=== PATIENT | female | born 1990 | race Two or more races ===

== ENCOUNTER 2017-10-07 04:07 | Emergency (ER) | payer OTHER ==
[2017-10-07 06:03] LABS: ABSOLUTE BASOPHILS # (AUTO) 0.1 10^3/uL (0.0-0.2); ABSOLUTE EOSINOPHILS # (AUTO) 0.3 10^3/uL (0.0-0.6); ABSOLUTE MONOCYTES (AUTO) 0.8 10^3/uL (0.1-1.4); ABSOLUTE NEUT (AUTO) 5.8 10^3/uL (1.7-8.2); BASOPHILS % (AUTO) 0.7 % (0-2); HEMATOCRIT 36.9 % (36.0-47.0); HEMOGLOBIN 12.3 g/dL (12.0-15.5); LYMPHOCYTES % (AUTO) 22.6 % (13-45); MEAN CORPUSCULAR HEMOGLOBIN 29.2 pg (27.0-33.4); MEAN CORPUSCULAR HGB CONC 33.3 g/dL (32.0-36.0); MEAN CORPUSCULAR VOLUME 88 fl (80-97); MONOCYTES % (AUTO) 9.2 % (3-13); RED BLOOD COUNT 4.21 10^6/uL (3.72-5.28); SEGMENTED NEUTROPHILS % (AUTO) 64.5 % (42-78); WHITE BLOOD COUNT 8.9 10^3/uL (4.0-10.5)
[2017-10-07 06:11] LABS: APPEARANCE,URINE CLEAR; BILIRUBIN,URINE NEGATIVE (NEGATIVE); GLUCOSE, URINE NEGATIVE (NEGATIVE); KETONES,URINE NEGATIVE (NEGATIVE); LEUKOCYTE ESTERASE,URINE NEGATIVE (NEGATIVE); NITRITE,URINE NEGATIVE (NEGATIVE); PROTEIN,URINE NEGATIVE (NEGATIVE); URINE SPECIFIC GRAVITY 1.016; UROBILINOGEN,URINE NEGATIVE mg/dL (<2.0)
[2017-10-07 06:15] LABS: ANION GAP 10 (5-19); BLOOD UREA NITROGEN 11 mg/dL (7-20); CALCIUM 9.1 mg/dL (8.4-10.2); CARBON DIOXIDE 29 mmol/L (22-30); CHLORIDE 104 mmol/L (98-107); CREATININE RESULT 0.71 mg/dL (0.52-1.25); GLUCOSE 83 mg/dL (75-110); POTASSIUM 4.3 mmol/L (3.6-5.0); SODIUM 142.6 mmol/L (137-145)
[2017-10-07 06:34] LABS: ALANINE AMINOTRANSFERASE 33 U/L (9-52); ALBUMIN 4.4 g/dL (3.5-5.0); ALKALINE PHOSPHATASE 64 U/L (38-126); ASPARTATE AMINO TRANSFERASE 23 U/L (14-36); BILIRUBIN,DIRECT 0.1 mg/dL (0.0-0.4); BILIRUBIN,TOTAL 0.2 mg/dL (0.2-1.3); TOTAL PROTEIN 6.8 g/dL (6.3-8.2)
--- NOTE | 2017-10-07 06:48 | ER Document Report ---
ED General - General Chief Complaint: Abdominal Pain Stated Complaint: ABDOMINAL PAIN Time Seen by Provider: 10/07/17 06:08 TRAVEL OUTSIDE OF THE [place] IN LAST 30 DAYS: No - HPI Patient complains to provider of: Multiple complaints abdominal pain Notes: Patient coming in today for multiple complaints which include extreme weight loss over 3 months hair loss over 3 months week lethargic states not having extreme abdominal pain left upper quadrant. Patient states is ongoing for the last few days patient states worse tonight no nausea no vomiting no diarrhea. Patient states no exacerbation with eating food. Patient states pain normally starts in the left upper quadrant and radiates to rest of her body. Patient states recently was seen in [facility] however noted laboratory testing or imaging was performed. Patient denies a history of alcohol abuse denies any NSAID use. Patient resting comfortably upon my evaluation. 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 Patient denies any diarrhea denies seeing any parasites in her stool. - Related Data Allergies/Adverse Reactions: No Known Allergies Allergy (Unverified 04/18/14 20:17) Past Medical History - Social History Smoking Status: Unknown if Ever Smoked Family History: Reviewed & Not Pertinent Patient has suicidal ideation: No Patient has homicidal ideation: No Renal/ Medical History: Denies: Hx Peritoneal Dialysis - Immunizations Immunizations up to date: Yes Hx Diphtheria, Pertussis, Tetanus Vaccination: Yes Review of Systems - Review of Systems Constitutional: Other - Weight loss hair loss feeling weak and tired EENT: No symptoms reported Cardiovascular: No symptoms reported Respiratory: No symptoms reported Gastrointestinal: Abdominal pain Genitourinary: No symptoms reported Female Genitourinary: No symptoms reported Musculoskeletal: No symptoms reported Skin: No symptoms reported Hematologic/Lymphatic: No symptoms reported Neurological/Psychological: No symptoms reported Physical Exam - Vital signs Vitals: Temp Pulse Resp BP Pulse Ox 99.3 F 116 H 20 143/93 H 99 10/07/17 04:13 10/07/17 04:13 10/07/17 04:13 10/07/17 04:13 10/07/17 04:13 Interpretation: Normal - General General appearance: Appears well, Alert - HEENT Head: Normocephalic, Atraumatic Eyes: Normal Pupils: PERRL - Respiratory Respiratory status: No respiratory distress Chest status: Nontender Breath sounds: Normal Chest palpation: Normal - Cardiovascular Rhythm: Regular Heart sounds: Normal auscultation Murmur: No - Abdominal Inspection: Normal Distension: No distension Bowel sounds: Normal Tenderness: Nontender Organomegaly: No organomegaly - Back Back: Normal, Nontender - Extremities General upper extremity: Normal inspection, Nontender, Normal color, Normal ROM , Normal temperature General lower extremity: Normal inspection, Nontender, Normal color, Normal ROM , Normal temperature, Normal weight bearing. No: Lydia's sign - Neurological Neuro grossly intact: Yes Cognition: Normal Orientation: AAOx4 [place] Coma Scale Eye Opening: Spontaneous [place] Coma Scale Verbal: Oriented Daniella Coma Scale Motor: Obeys Commands [place] Coma Scale Total: 15 Speech: Normal Motor strength normal: LUE, RUE, LLE, RLE Sensory: Normal - Psychological Associated symptoms: Normal affect, Normal mood - Skin Skin Temperature: Warm Skin Moisture: Dry Skin Color: Normal Course - Re-evaluation Re-evalutation: 10/07/17 07:25 Patient examination is otherwise benign. Did review the patient's weight last time she is here in the emergency room in December 2015 with a weight of 64 kg. Patient does weigh 58 kg today. Laboratory studies not show any eosinophilia consistent with a parasitic infection. Also does not show any other derangement or concerning pathology. Because of the patient's left upper quadrant pain will start patient on omeprazole and Bentyl. I encouraged patient to follow-up with primary care physicians at [facility]. Patient states understanding will be discharged home. - Vital Signs Vital signs: Temp Pulse Resp BP Pulse Ox 98 F 71 16 105/58 L 98 10/07/17 08:00 10/07/17 08:00 10/07/17 08:00 10/07/17 08:00 10/07/17 08:00 - Laboratory Result Diagrams: 10/07/17 05:50 10/07/17 05:50 Laboratory results interpreted by me: 10/07/17 05:50 Urine Ascorbic Acid 20 H Discharge - Discharge Clinical Impression: Weight loss, Weakness Abdominal pain Qualifiers: Abdominal location: unspecified location Qualified Code(s): R10.9 - Unspecified abdominal pain Condition: Good Disposition: HOME, SELF-CARE Instructions: Abdominal Pain ([facility]), Gastritis ([facility]) Additional Instructions: Your laboratory results today do not show any significant pathology. We will send you home with materials to perform stool testing for parasites. Please take medications as prescribed. I recommend following up with your primary care physician for further outpatient testing. Return to the ER for any concerning issues. Prescriptions: Dicyclomine HCl [Bentyl 20 mg Tablet] 20 mg PO QID #40 tablet Omeprazole 20 mg PO DAILY #30 capsule.dr Forms: Follow-Up Outpatient Testing
[2017-10-07 07:01] LABS: URINE BARBITURATES SCREEN NEGATIVE; URINE METHADONE SCREEN NEGATIVE; URINE OPIATES LOW NEGATIVE; URINE PHENCYCLIDINE SCREEN NEGATIVE
[2017-10-07] MEDS ORDERED: DICYCLOMINE HCL 20 MG TABLET PO ONE (07:28)
[2017-10-07] MEDS ORDERED: LANSOPRAZOLE 30 MG TAB.RAP.DR PO ONE (07:28)
[2017-10-07 08:11] VITALS: BP 105/58
== END 2017-10-07 08:00 | disposition home or self-care (01) ==
LOC: ER 04:07
DX: R63.4 Abnormal weight loss (principal); R53.1 Weakness; R10.9 Unspecified abdominal pain; L65.9 Nonscarring hair loss, unspecified
CPT/HCPCS: 99284; 36415; 84439; 84702; 83690; 84443; 85025; 80076; 80048; 81001; 80307; J3490

== ENCOUNTER 2018-03-21 12:08 | Emergency (ER) | payer OTHER ==
[2018-03-21] MEDS ORDERED: DIPH/PERTUSS(ACELL)/TETANUS VAC/PF 0.5 ML SYR (>=10YO) IM ONE (13:15)
--- NOTE | 2018-03-21 14:02 | RADIOLOGY REPORT (SQ) ---
EXAM DESCRIPTION: WRIST LEFT 3 VIEWS COMPLETED DATE/TIME: 03/21/2018 1:48 pm REASON FOR STUDY: wrist pain and swelling COMPARISON: None. NUMBER OF VIEWS: Three views. TECHNIQUE: AP, lateral, and oblique radiographic images acquired of the left wrist. LIMITATIONS: None. FINDINGS: MINERALIZATION: Normal. BONES: No acute fracture or dislocation. No worrisome bone lesions. Normal alignment. SOFT TISSUES: Air is identified in the soft tissues especially anterior to the distal ulna and radius with associated soft tissue swelling. The possibility of an infectious process should be considered . Couple small radiopaque densities are identified 1 at the level of carpal bones medially in 1 post erior to the distal ulna and radius which I cannot exclude is radiopaque foreign bodies. OTHER: No other significant finding. IMPRESSION: Air is identified in the soft tissues as noted above with associated soft tissue swellin g. The possibility of an infectious process should be considered. Possible radiopaque foreign kelly s as noted above. Other findings as noted above TECHNICAL DOCUMENTATION: JOB ID: [id number] [employer]- All Rights Reserved Reading location - IP/workstation name: [email or web address]
[2018-03-21 14:22] VITALS: BP 109/68
--- NOTE | 2018-03-21 15:29 | ER Document Report ---
ED Animal Bite - General Chief Complaint: Dog Bite Stated Complaint: DOG BITE Time Seen by Provider: 03/21/18 13:10 Notes: Patient is a healthy 27-year-old female presenting to the emergency department complaining of a dog bite to her left forearm. Patient was breaking up a fight between her dogs when the dog bit her TRAVEL OUTSIDE OF THE [place] IN LAST 30 DAYS: No - HPI Location of injury: LUE Severity of injury: Bitten Onset: Just prior to arrival Quality of pain: Achy Pain Level: 4 Context of attack: Animals fighting Type of animal: Dog Appearance of animal: Appeared well - Related Data Allergies/Adverse Reactions: No Known Allergies Allergy (Verified 03/21/18 12:22) Past Medical History - General Information source: Patient - Social History Smoking Status: Current Every Day Smoker Frequency of alcohol use: Rare Drug Abuse: None Lives with: Family Family History: Reviewed & Not Pertinent Patient has suicidal ideation: No Patient has homicidal ideation: No - Medical History Medical History: Negative Renal/ Medical History: Denies: Hx Peritoneal Dialysis - Immunizations Immunizations up to date: Yes Hx Diphtheria, Pertussis, Tetanus Vaccination: Yes Review of Systems - Review of Systems Constitutional: No symptoms reported EENT: No symptoms reported Cardiovascular: No symptoms reported Respiratory: No symptoms reported Gastrointestinal: No symptoms reported Genitourinary: No symptoms reported Female Genitourinary: No symptoms reported Musculoskeletal: See HPI Skin: No symptoms reported Hematologic/Lymphatic: No symptoms reported Neurological/Psychological: No symptoms reported Physical Exam - Vital signs Vitals: Temp Pulse Resp BP Pulse Ox 99.1 F 76 16 97/60 L 100 03/21/18 12:29 03/21/18 12:29 03/21/18 12:29 03/21/18 12:29 03/21/18 12:29 Interpretation: Normal - General General appearance: Appears well, Alert - HEENT Head: Normocephalic, Atraumatic Eyes: Normal Pupils: PERRL - Respiratory Respiratory status: No respiratory distress Chest status: Nontender Breath sounds: Normal Chest palpation: Normal - Cardiovascular Rhythm: Regular Heart sounds: Normal auscultation Murmur: No - Abdominal Inspection: Normal Distension: No distension Bowel sounds: Normal Tenderness: Nontender Organomegaly: No organomegaly - Back Back: Normal, Nontender - Extremities General lower extremity: Normal inspection, Nontender, Normal color, Normal ROM , Normal temperature, Normal weight bearing. No: Lydia's sign Forearm: Tender - Positive soft tissue swelling to left dorsal hand and left dorsal forearm with 2 puncture wounds to dorsal mid forearm. Abrasion to mid left palm. no tendon involvement. - Neurological Neuro grossly intact: Yes Cognition: Normal Orientation: AAOx4 [place] Coma Scale Eye Opening: Spontaneous [place] Coma Scale Verbal: Oriented [place] Coma Scale Motor: Obeys Commands [place] Coma Scale Total: 15 Speech: Normal Motor strength normal: LUE, RUE, LLE, RLE Sensory: Normal - Psychological Associated symptoms: Normal affect, Normal mood - Skin Skin Temperature: Warm Skin Moisture: Dry Skin Color: Normal Course - Re-evaluation Re-evalutation: 03/21/18 15:26 X-rays negative for fracture but showing air through multiple levels of soft tissue. These results were reviewed with Dr. Deutsch who recommended an orthopedic consult. I discussed patient with orthopedist non categorical preschool teacher, Dr. Sawant who recommends IV antibiotic Unasyn 1 dose now and oral antibiotic coverage with Augmentin and follow-up in his office tomorrow for further evaluation. This plan was discussed with the patient who is in agreement. Wounds were cleansed with Shur-Clens and antibiotic ointment and dressings were applied. There are no symptoms of circulatory compromise or compartment syndrome. Patient is stable for discharge - Vital Signs Vital signs: Temp Pulse Resp BP Pulse Ox 98.0 F 71 16 109/68 100 03/21/18 14:21 03/21/18 14:21 03/21/18 14:21 03/21/18 14:21 03/21/18 14:21 Discharge - Discharge Clinical Impression: Dog bite Qualifiers: Encounter type: initial encounter Qualified Code(s): W54.0XXA - Bitten by dog, initial encounter Condition: Stable Disposition: HOME, SELF-CARE Instructions: Animal Bites ([facility]), Antibiotic Therapy ([facility]), Ibuprofen (General ) ([facility]), IV Antibiotics ([facility]), Soap Cleansing ([facility]), Tetanus Immunization Given ([facility]) Additional Instructions: Clean wounds with antibacterial soap and water Cover with antibiotic ointment and dressing after cleaning Please follow-up with orthopedist tomorrow for further evaluation and treatment Prescriptions: Amox Tr/Potassium Clavulanate [Augmentin 875-125 Tablet] 1 tab PO BID 10 Days # 20 tablet Hydrocodone/Acetaminophen [[place] 5-325 mg Tablet] 1 tab PO Q4H #15 tablet Ibuprofen [Motrin 800 Mg Tablet] 800 mg PO Q6H #20 tablet Forms: Return to Work
[2018-03-21] MEDS ORDERED: AMPICILLIN SOD/SULBACTAM 3 GM VIAL IV ONE (15:43)
== END 2018-03-21 18:01 | disposition home or self-care (01) ==
LOC: ER 12:08
DX: S51.852A Open bite of left forearm, initial encounter (principal); W54.0XXA Bitten by dog, initial encounter; Y92.009 Unspecified place in unspecified non-institutional (private) residence as the place of occurrence of the external cause; F17.200 Nicotine dependence, unspecified, uncomplicated; Z23 Encounter for immunization
CPT/HCPCS: 99283; 90471; 96374; 73110; 90715; J0295

== ENCOUNTER 2018-04-19 17:07 | Emergency (ER) | payer OTHER ==
[2018-04-19] MEDS ORDERED: ONDANSETRON 4 MG TAB.RAPDIS PO ONE (18:07)
--- NOTE | 2018-04-19 18:08 | ER Document Report ---
ED Medical Screen (RME) - General Chief Complaint: General Weakness Stated Complaint: WEAKNESS Time Seen by Provider: 04/19/18 18:01 Notes: RAPID MEDICAL EVALUATION DISCLOSURE I have seen this patient as part of a Rapid Medical Evaluation and, if applicable, placed any initially appropriate orders. The patient will be seen and fully evaluated, including a full history and physical exam, by a provider ( in Main ED or Fast Track) when a room becomes available. 27-year-old female here with complaints of fatigue, generalized weakness, weight loss, nausea, hair loss ongoing for the past 6 months. She states it has been worsening over the past few weeks. She had seen her PCP several weeks ago and "they took a lot of blood but I have not heard anything back yet". She has not tried anything for the symptoms. EXAM CTAB RRR Alert oriented and conversational TRAVEL OUTSIDE OF THE [place] IN LAST 30 DAYS: No - Related Data Allergies/Adverse Reactions: No Known Allergies Allergy (Verified 04/19/18 17:08) Past Medical History Renal/ Medical History: Denies: Hx Peritoneal Dialysis - Immunizations Immunizations up to date: Yes Hx Diphtheria, Pertussis, Tetanus Vaccination: Yes Physical Exam - Vital signs Vitals: Temp Pulse Resp BP Pulse Ox 98.4 F 75 20 120/73 99 04/19/18 17:20 04/19/18 17:20 04/19/18 17:20 04/19/18 17:20 04/19/18 17:20 Course - Vital Signs Vital signs: Temp Pulse Resp BP Pulse Ox 98.4 F 75 20 120/73 99 04/19/18 17:20 04/19/18 17:20 04/19/18 17:20 04/19/18 17:20 04/19/18 17:20
[2018-04-19 18:41] LABS: ABSOLUTE BASOPHILS # (AUTO) 0.1 10^3/uL (0.0-0.2); ABSOLUTE EOSINOPHILS # (AUTO) 0.2 10^3/uL (0.0-0.6); ABSOLUTE LYMPHOCYTES (AUTO) 2.6 10^3/uL (0.5-4.7); ABSOLUTE MONOCYTES (AUTO) 0.6 10^3/uL (0.1-1.4); BASOPHILS % (AUTO) 0.8 % (0-2); EOSINOPHILS % (AUTO) 2.6 % (0-6); HEMATOCRIT 40.4 % (36.0-47.0); HEMOGLOBIN 13.4 g/dL (12.0-15.5); LYMPHOCYTES % (AUTO) 35.2 % (13-45); MEAN CORPUSCULAR HEMOGLOBIN 29.6 pg (27.0-33.4); MEAN CORPUSCULAR VOLUME 90 fl (80-97); MONOCYTES % (AUTO) 7.6 % (3-13); PLATELET COUNT 273 10^3/uL (150-450); RED BLOOD COUNT 4.51 10^6/uL (3.72-5.28); RED CELL DISTRIBUTION WIDTH 13.2 % (11.5-14.0); SEGMENTED NEUTROPHILS % (AUTO) 53.8 % (42-78); TOTAL CELLS COUNTED % (AUTO) 100 %; WHITE BLOOD COUNT 7.4 10^3/uL (4.0-10.5)
[2018-04-19 18:46] LABS: AMORPHOUS SEDIMENT,URINE 1+ /HPF; APPEARANCE,URINE CLOUDY; BILIRUBIN,URINE NEGATIVE (NEGATIVE); COLOR,URINE YELLOW; GLUCOSE, URINE NEGATIVE (NEGATIVE); KETONES,URINE NEGATIVE (NEGATIVE); LEUKOCYTE ESTERASE,URINE NEGATIVE (NEGATIVE); NITRITE,URINE NEGATIVE (NEGATIVE); PROTEIN,URINE NEGATIVE (NEGATIVE); URINE SPECIFIC GRAVITY 1.017
[2018-04-19 19:07] LABS: ALANINE AMINOTRANSFERASE 28 U/L (9-52); ALBUMIN 4.5 g/dL (3.5-5.0); ALKALINE PHOSPHATASE 47 U/L (38-126); ANION GAP 12 (5-19); ASPARTATE AMINO TRANSFERASE 20 U/L (14-36); BILIRUBIN,DIRECT 0.3 mg/dL (0.0-0.4); BILIRUBIN,TOTAL 0.3 mg/dL (0.2-1.3); BLOOD UREA NITROGEN 11 mg/dL (7-20); CALCIUM 9.1 mg/dL (8.4-10.2); CARBON DIOXIDE 31 mmol/L (22-30); CHLORIDE 103 mmol/L (98-107); GLUCOSE 74 mg/dL (75-110); PHOSPHORUS 4.5 mg/dL (2.5-4.5); POTASSIUM 4.3 mmol/L (3.6-5.0); SODIUM 145.6 mmol/L (137-145); TOTAL PROTEIN 7.3 g/dL (6.3-8.2)
--- NOTE | 2018-04-19 19:34 | ER Document Report ---
HPI - HPI Patient complains to provider of: Fatigue, nausea Onset: Other - Several weeks Onset/Duration: Persistent Quality of pain: No pain Pain Level: Denies Context: Patient complains of generalized fatigue, nausea and lack of energy for the past several weeks. Patient reports a 8 pound weight loss in 5 days. Patient denies any fever vomiting or diarrhea. Patient denies any chest pain, cough or cold symptoms. Associated Symptoms: Nausea, Other - Fatigue. denies: Chest pain, Nonproductive cough, Productive cough, Fever, Headache, Vomiting Exacerbated by: Denies Relieved by: Denies Similar symptoms previously: No Recently seen / treated by doctor: Yes - ROS ROS below otherwise negative: Yes Systems Reviewed and Negative: Yes All other systems reviewed and negative - CONSTITUTIONAL Constitutional: DENIES: Fever, Chills - EENT EENT: DENIES: Sore Throat - NEURO Neurology: DENIES: Headache - CARDIOVASCULAR Cardiovascular: DENIES: Chest pain - RESPIRATORY Respiratory: DENIES: Trouble Breathing, Coughing - GASTROINTESTINAL Gastrointestinal: REPORTS: Nausea. DENIES: Abdominal Pain, Patient vomiting - REPRODUCTIVE Reproductive: DENIES: : - MUSCULOSKELETAL Musculoskeletal: DENIES: Back Pain, Neck Pain - DERM Skin Color: Normal, [place] Skin Problems: None Past Medical History - General Information source: Patient - Social History Smoking Status: Current Every Day Smoker Smoking Education Provided: Yes Frequency of alcohol use: Occasional Drug Abuse: Marijuana Occupation: financial planning assistant Lives with: Family Family History: Reviewed & Not Pertinent Patient has suicidal ideation: No Patient has homicidal ideation: No - Medical History Medical History: Negative Renal/ Medical History: Denies: Hx Peritoneal Dialysis Surgical Hx: Negative - Immunizations Immunizations up to date: Yes Hx Diphtheria, Pertussis, Tetanus Vaccination: Yes Vertical Provider Document - CONSTITUTIONAL Agree With Documented VS: Yes Exam Limitations: No Limitations General Appearance: WD/WN, No Apparent Distress - INFECTION CONTROL TRAVEL OUTSIDE OF THE [place] IN LAST 30 DAYS: No - HEENT HEENT: Atraumatic, Normal ENT Exam, Normocephalic, PERRLA - NECK Neck: Normal Inspection, Supple. negative: Lymphadenopathy-Left, Lymphadenopathy-Right - RESPIRATORY Respiratory: Breath Sounds Normal, No Respiratory Distress - CARDIOVASCULAR Cardiovascular: Regular Rate, Regular Rhythm, No Murmur - GI/ABDOMEN Gastrointestinal: Abdomen Soft, Abdomen Non-Tender, No Organomegaly - BACK Back: Normal Inspection. negative: CVA Tenderness-Right, CVA Tenderness-Left - MUSCULOSKELETAL/EXTREMETIES Musculoskeletal/Extremeties: MAEW - NEURO Level of Consciousness: Awake, Alert, Appropriate Motor/Sensory: No Motor Deficit - DERM Integumentary: Warm, Dry, No Rash Course - Re-evaluation Re-evalutation: 04/19/18 20:02 Patient tolerating fluids without emesis. Discussed results of diagnostic tests. Patient encouraged to follow-up with a primary doctor for further evaluation of her thyroid functioning. Patient also encouraged to follow-up with a auto dealer for further evaluation given her history of abnormal Pap test. Patient encouraged to eat regular meals with snacks. Patient also advised that she may need to touch base with a mental health professional given her previous history of depression. Patient is not suicidal or homicidal at this time. Patient verbalized understanding and agrees with plan of care. - Vital Signs Vital signs: Temp Pulse Resp BP Pulse Ox 98.4 F 75 20 120/73 99 04/19/18 17:20 04/19/18 17:20 04/19/18 17:20 04/19/18 17:20 04/19/18 17:20 - Laboratory Result Diagrams: 04/19/18 18:20 04/19/18 18:20 Laboratory results interpreted by me: 04/19/18 04/19/18 18:20 18:20 Sodium 145.6 H Carbon Dioxide 31 H Glucose 74 L Urine Urobilinogen 2.0 H Discharge - Discharge Clinical Impression: Abnormal TSH, Nausea Fatigue Qualifiers: Fatigue type: unspecified Qualified Code(s): R53.83 - Other fatigue Condition: Stable Disposition: HOME, SELF-CARE Instructions: Fatigue ([facility]), Nausea or Vomiting, Nonspecific ([facility]) Additional Instructions: Return immediately for any new or worsening symptoms Followup with your primary care provider, call tomorrow to make a followup appointment Follow-up with a auto dealer for further evaluation regarding her abnormal Pap test. Your TSH, thyroid stimulating hormone test level was low today at 0.26. See your primary doctor for further evaluation of this abnormal finding. Prescriptions: Ondansetron HCl [Zofran 4 mg Tablet] 1 - 2 tab PO Q6 PRN #15 tablet PRN Reason: Forms: Smoking Cessation Education, Return to Work Referrals: [facility] [Provider Group] - Follow up as needed
[2018-04-19 20:15] VITALS: BP 120/70
[2018-04-19 20:21] LABS: FREE T3 3.83 pg/mL (2.77-5.27); FREE T4 (FREE THYROXINE) 0.95 ng/dL (0.78-2.19)
== END 2018-04-19 20:14 | disposition home or self-care (01) ==
LOC: ER 17:07
DX: R53.83 Other fatigue (principal); R11.0 Nausea; R94.6 Abnormal results of thyroid function studies; R63.4 Abnormal weight loss; Z68.21 Body mass index [BMI] 21.0-21.9, adult; F17.200 Nicotine dependence, unspecified, uncomplicated
CPT/HCPCS: 99284; 36415; 84439; 83735; 84100; 84443; 85025; 81025; 80053; 81001; 84481; S0119